=== PATIENT | female | born 1975 | race Caucasian/White ===

== ENCOUNTER 2018-01-02 06:08 | Day surgery (SDC) | payer MEDICAID ==
[~2018-01-02] VITALS: Ht 157.5 cm; Wt 102.1 kg
--- NOTE | ~2018-01-02 | OP ---
PATIENT NAME: APOLLO FISHER MEDICAL RECORD: [id number] :79 LOCATION:D.OPS ADMISSION DATE: SURGEON: KATHY GUARDADO DPM DATE OF OPERATION: 01/02/2018 PREOPERATIVE DIAGNOSES: 1. HAV, right foot. 2. Instability, right first met cuneiform joint. 3. Right second PIPJ hammertoe. POSTOPERATIVE DIAGNOSES: 1. HAV, right foot. 2. Instability, right first met cuneiform joint. 3. Right second PIPJ hammertoe. PROCEDURES: 1. Right Carrera bunionectomy. 2. Right first met cuneiform joint fusion. 3. Right second PIPJ fusion. ANESTHESIA: General with popliteal block per the anesthesia department. HEMOSTASIS: Right thigh tourniquet at 350 mmHg. PREOPERATIVE DETAILS: The patient was taken to the OR and placed on the operating table in supine position. This was followed by induction of general anesthesia. The right extremity was then prepped and draped in usual aseptic technique followed by exsanguination and inflation of tourniquet. PROCEDURE #1: Right Carrera bunionectomy: A 15-blade was used to create an incision from the base of the proximal phalanx of the hallux proximal to the medial cuneiform. The incision was deepened down through subcutaneous tissue. The first MPJ was then acquired. An inverted L capsulotomy was performed. The medial capsular flap was reflected and the head of first metatarsal was delivered. A sagittal saw was used to resect the medial eminence. Attention was then directed to the first interspace where a lateral release was performed. PROCEDURE #2: First met cuneiform joint fusion: The incision as described in #1 was carried to the dorsal aspect of the medial cuneiform with dissection down to the periosteum. A periosteal incision was made and the joint was delivered. A sagittal saw was used to resect the joint. Temporary fixation was placed and a 5-hole plate with one screw crossing the fusion site through the plate was placed utilizing C-arm to verify good placement and alignment of the first ray. The wound was flushed and the periosteum and first MPJ capsule were repaired with 2-0 Vicryl, the subcutaneous tissue with 4-0 Rapide and the skin was closed with 4-0 Rapide in a subcuticular technique followed by Dermabond. PROCEDURE #3: PIPJ fusion, right second digit: A 15-blade was used to create a transverse incision over the dorsal aspect of the PIPJ of the right second digit. The incision was deepened down to the extensor longus tendon, which was transected. The head of the proximal phalanx and base of middle phalanx were then delivered. A sagittal saw was used to resect both. A small drill hole was made in the proximal phalanx and the middle phalanx, at which time bone graft was placed in the deficit allowing reduction of the hammertoe and stabilization of the PIPJ. The extensor longus tendon as well as the skin were reapproximated OPERATIVE REPORT [id number] APOLLO FISHER with 4-0 Rapide in a simple interrupted technique followed by Dermabond. Adaptic, 4 x 4, and Kerlix were used to dress the wound followed by application of modified Acosta compression dressing. The tourniquet was then deflated. POSTOPERATIVE DETAILS: The patient tolerated the procedure well and left the OR with vital signs stable and vascular status at preoperative levels. The patient was transported to recovery per anesthesia in stable condition. TRANSINT:[id number] Voice Confirmation ID: [id number] DOCUMENT ID: [id number] KATHY GUARDADO DPM at 1025 CC: [id number] DICTATION DATE: 01/02/18 1251 CARD WRITER HAND: 01/02/18 1355 [facility] [place] 01/02/18 [id number] [place] [address]
[~2018-01-02 06:08] MED LIST: FLUTICASONE PRO16 GM NASAL; LEVOTHYROXINE75 MCG PO
[2018-01-02 06:25] LABS: HEMATOCRIT 39.6 % (36.0-48.0); HEMOGLOBIN 13.3 g/dL (12-16); MCHC 33.6 g/dL (31.0-37.0); MCV 83.4 fL (80.0-100.0); RBC 4.75 10x6/uL (4.00-5.40); RDW 13.4 % (11.5-14.5); WBC 7.9 10x3/uL (4.8-10.8)
[2018-01-02 07:32] VITALS: Ht 157.5 cm; Wt 102.1 kg
== END 2018-01-02 17:45 | disposition home or self-care (01) ==
LOC: D.OPS 06:08 → D.PAN 09:30 → D.OPS 10:15 → D.PAN 10:30 → D.OPS 10:30
PROVIDERS: Anesthesiology
DX: M20.11 Hallux valgus (acquired), right foot (principal); M25.374 Other instability, right foot; M20.41 Other hammer toe(s) (acquired), right foot